=== PATIENT | female | born 1965 | race African-American/Black ===

== ENCOUNTER 2017-05-15 12:44 | Emergency (ER) | payer SELFPAY ==
[~2017-05-15] VITALS: Ht 157.5 cm; Wt 84.0 kg
[2017-05-15 12:48] VITALS: BP 133/78; PULSE 97; RESP 16; TEMP 98.4; O2SAT 99
[2017-05-15] MEDS ORDERED: IBUPROFEN 800 MG TAB PO ONE (13:15)
--- NOTE | 2017-05-15 14:07 | RADRPT ---
EXAM DATE/TIME: 05/15/2017 13:37 [facility] COMPARISON: No previous studies available for comparison. INDICATIONS : Patient complains of left ankle pain and swelling. No known injury. MEDICAL HISTORY : None. SURGICAL HISTORY : None. ENCOUNTER: Initial ACUITY: 2 weeks PAIN SCORE: 6/10 LOCATION: Left Ankle FINDINGS: Three view exam was performed of the left ankle. The bony structures are in normal alignment. No ev idence of fracture or dislocation. Minimal soft tissue prominence. The ankle mortise is intact. No radiopaque foreign bodies are seen. Bony mineralization is normal. CONCLUSION: Mild soft tissue prominence. No fracture. Andrea Romero MD on May 15, 2017 at 14:04 Board Certified Radiologist. This report was verified electronically.
[2017-05-15] MEDS ORDERED: MEDI220T PO (14:21)
--- NOTE | 2017-05-15 14:23 | PD ---
HPI . Left ankle pain Chief Complaint: Injury Time Seen by Provider: 13:05 Travel History International Travel<30 days: No Contact w/Intl Traveler<30days: No Traveled to known affect area: No History of Present Illness HPI 52-year-old female presents emergency for evaluation of left ankle pain. Patient denies any trauma, injury or fall. Patient states the pain started a couple weeks ago. Patient states the pain has been severe and causing difficulty ambulating. The patient states she went to [employer] yesterday and had a very difficult time walking around. The patient's only major medical history is hypertension. She denies any chest pain, shortness breath, fever, chills, malaise, lightheadedness, abdominal pain, nausea, vomiting, diarrhea. PFSH Past Medical History Diminished Hearing: No Hypertension: Yes (NON COMPLIANT) : 3 Para: 2 : 1 Tubal Ligation: Yes Past Surgical History Section: Yes Gynecologic Surgery: Yes (C SECT AND TUBAL LIGATION) Hysterectomy: Yes (HTN) Social History Alcohol Use: Yes (4 PACK BEER/DAY) Tobacco Use: Yes (1 1/2 PPD) Substance Use: Yes (CRACK YESTERDAY) Allergies-Medications (Allergen,Severity, Reaction): Coded Allergies: No Known Allergies (Verified Adverse Reaction, Unknown, 05/15/17) Reported Meds & Prescriptions Reported Meds & Active Scripts Active No Active Prescriptions or Reported Medications Review of Systems Except as stated in HPI: all other systems reviewed are Neg Physical Exam Narrative GENERAL: Well-nourished, well-developed 52-year-old female patient in no acute distress. Nontoxic appearing. SKIN: Focused skin assessment warm/dry. HEAD: Normocephalic. Atraumatic. EYES: No scleral icterus. No injection or drainage. NECK: Supple, trachea midline. No JVD or lymphadenopathy. CARDIOVASCULAR: Regular rate and rhythm without murmurs, gallops, or rubs. Pedal pulses +2 bilaterally. RESPIRATORY: Breath sounds equal bilaterally. No accessory muscle use. GASTROINTESTINAL: Abdomen soft, non-tender, nondistended. MUSCULOSKELETAL: Mildly edematous left ankle. No obvious deformity, cyanosis, ecchymosis, or erythema. BACK: Nontender without obvious deformity. No CVA tenderness. Data Data Last Documented VS Vital Signs Date Time Temp Pulse Resp B/P (MAP) Pulse Ox O2 Delivery O2 Flow Rate FiO2 05/15/17 12:48 98.4 97 16 133/78 (96) 99 Orders Orders Ankle, Complete ([id number]) (05/15/17 13:11) Ice/Cold Pack (05/15/17 13:11) Ibuprofen (Motrin) (05/15/17 13:15) Splint Or Brace Apply/Monitor (05/15/17 14:12) Ed Discharge Order (05/15/17 14:12) [facility] Medical Decision Making Medical Screen Exam Complete: Yes Emergency Medical Condition: Yes Differential Diagnosis Differential diagnoses include but not limited to ankle sprain, left ankle contusion, left ankle fracture, muscular strain, muscular sprain Narrative Course 52-year-old female patient presents emergency department for evaluation of left ankle pain 2 weeks. The left foot is neurovascularly intact. The left ankle is mildly edematous. There is no obvious deformity, ecchymosis, cyanosis or erythema. Left ankle x-ray ordered and pending. Ice applied to the left ankle. Ibuprofen ordered for pain and swelling. Left ankle x-ray shows soft tissue prominence with no fracture. Ryan wrap will be applied to left ankle and patient will be given crutches. Patient will be given a prescription for naproxen and discharged home with instructions to follow-up with her primary care or ortho for ankle sprain if pain persists. Patient will be given instructions on rice therapy. Last Impressions Ankle X-Ray 05/15/17 1311 Signed Impressions: Service Date/Time: Wednesday, May 15, 2017 13:37 - CONCLUSION: Mild soft tissue prominence. No fracture. Andrea Romero MD Diagnosis Primary Impression: Ankle sprain Qualified Codes: S93.402A - Sprain of unspecified ligament of left ankle, initial encounter Referrals: Fran Blake MD Primary Care Physician Patient Instructions: Ankle Sprain (ED), General Instructions Additional Instructions: Please return to emergency department if your symptoms return or worsen. Follow up with your primary care provider or Dr. Blake the orthopedist for further evaluation if pain persists. Take naproxen as directed as needed for pain. Rice therapy to left ankle, rest, ice, Ryan wrap with activity and elevate with resting. Med/Other Pt SpecificInfo: Prescription(s) given Scripts Naproxen Sodium (Naproxen Sodium) 220 Mg Tab 440 MG PO BID Y for Pain Management, #15 TAB 0 Refills Prov: Darcie Neal 05/15/17 Disposition: 01 DISCHARGE HOME Condition: Stable Darcie Neal May 15, 2017 14:23
== END 2017-05-15 14:33 | disposition home or self-care (01) ==
LOC: NEPK 12:44
DX: S93.402A Sprain of unspecified ligament of left ankle, initial encounter (principal); I10 Essential (primary) hypertension; F17.200 Nicotine dependence, unspecified, uncomplicated; X58.XXXA Exposure to other specified factors, initial encounter
CPT/HCPCS: 29515; 73610; 99283; E0113

== ENCOUNTER 2017-06-10 09:20 | Emergency (ER) | payer OTHER ==
[~2017-06-10] VITALS: Ht 157.5 cm; Wt 85.0 kg
[~2017-06-10 09:20] MED LIST: MEDI220T PO
[2017-06-10 09:22] VITALS: BP 168/102; PULSE 81; RESP 16; TEMP 98.2; O2SAT 98
[2017-06-10] MEDS ORDERED: AMLO10TA2 PO ×2 (09:40→10:06)
[2017-06-10] MEDS ORDERED: CLON0.3T PO ×2 (09:40→10:06)
--- NOTE | 2017-06-10 10:06 | PD ---
HPI Chief Complaint: Headache Time Seen by Provider: 09:49 Travel History International Travel<30 days: No Contact w/Intl Traveler<30days: No Traveled to known affect area: No History of Present Illness HPI 52-year-old female presents to emergency department complaining of a headache since last night. Related to her blood pressure being elevated and not taking her blood pressure medications 2 days because she ran out. Takes clonidine 0.3 mg twice a day and amlodipine 10 mg every a.m. She denies history of headaches. Headache is right frontal. Gradual onset. Reports nausea without vomiting. Denies fevers. Denies confusion, disorientation, change in mentation , slurred speech. Denies focal deficits or weakness. Denies chest pain, shortness of breath, abdominal pain. Has taken ibuprofen without relief of headache. Rates headache 04/13. Described as an ache. States that she was released from care home one month ago and was only given a one-month supply of blood pressure medication. Has appointment with [facility] on June 22 at 2:20 PM. No known allergies. History of hypertension and anemia. Has no other medical complaints. No other modifying factors or associated signs and symptoms. PFSH Past Medical History Cardiovascular Problems: Yes (HTN ) Diminished Hearing: No Hypertension: Yes Tetanus Vaccination: Unknown Influenza Vaccination: No ?: Not LMP: 4 YEARS AGO : 3 Para: 2 : 1 Tubal Ligation: Yes Past Surgical History Section: Yes Gynecologic Surgery: Yes (C SECT AND TUBAL LIGATION) Hysterectomy: Yes (HTN) Social History Alcohol Use: Yes (4 PACK BEER a few times per week) Tobacco Use: Yes (1 1/2 PPD) Substance Use: No (denied) Allergies-Medications (Allergen,Severity, Reaction): Coded Allergies: No Known Allergies (Verified Adverse Reaction, Unknown, 06/10/17) Reported Meds & Prescriptions Reported Meds & Active Scripts Active Amlodipine (Amlodipine Besylate) 10 Mg Tab 10 Mg PO DAILY Clonidine (Clonidine HCl) 0.3 Mg Tab 0.3 Mg PO BID Reported Amlodipine (Amlodipine Besylate) 10 Mg Tab 10 Mg PO DAILY Clonidine (Clonidine HCl) 0.3 Mg Tab 0.3 Mg PO BID Review of Systems Except as stated in HPI: all other systems reviewed are Neg Physical Exam Narrative GENERAL: Well-nourished, well-developed black female patient, in no acute distress SKIN: Warm and dry. HEAD: Atraumatic. Normocephalic. No facial droop noted. Tongue midline. Finger to nose test normal. EYES: Pupils equal and round at 3 mm with brisk reaction. No scleral icterus. No injection or drainage. PERRLA. EOMI. ENT: Mucosa pink and moist. Airway patent. NECK: Trachea midline. No lymphadenopathy. CARDIOVASCULAR: Regular rate and rhythm. No murmur appreciated. RESPIRATORY: No accessory muscle use. Clear to auscultation. Breath sounds equal bilaterally. GASTROINTESTINAL: Abdomen soft, non-tender, nondistended. Hepatic and splenic margins not palpable. Bowel sounds are active 4 quadrants. MUSCULOSKELETAL: No obvious deformities. No clubbing. No cyanosis. No edema. NEUROLOGICAL: Awake and alert. Oriented 4. No obvious cranial nerve deficits. Motor grossly within normal limits. Normal speech. No ataxia. No upper or lower extremity drift. No mid-line drift. Moves all extremities. 5/ 5 strength to all extremities. PSYCHIATRIC: Appropriate mood and affect; insight and judgment normal. Data Data Last Documented VS Vital Signs Date Time Temp Pulse Resp B/P (MAP) Pulse Ox O2 Delivery O2 Flow Rate FiO2 06/10/17 10:44 90 14 150/89 (109) 95 Room Air 06/10/17 09:[address] Brain W/O Iv Contrast(Rout) (06/10/17 ) Clonidine (Catapres) (06/10/17 10:15) Amlodipine (Norvasc) (06/10/17 10:15) MDM Medical Decision Making Medical Screen Exam Complete: Yes Emergency Medical Condition: Yes Medical Record Reviewed: Yes Differential Diagnosis High blood pressure, acute headache, medication refill Narrative Course 52-year-old female presents with headache and elevated blood pressure. She has not taken her blood pressure medication 2 days. Takes clonidine and amlodipine. Neuro exam is unremarkable. Denies chest pain, shortness of breath. Does not have history of headaches. Amlodipine and clonidine ordered per patients prescribed regimen. CT head ordered. 1106: CT head concludes: No acute intracranial abnormality is identified. Blood pressure recheck 150/89. Patient reports improvement in headache on reevaluation. Rates headache 6/10. Ibuprofen administered prior to discharge. Clonidine and amlodipine prescriptions provided for home. Instructed patient to follow up at scheduled appointment with [facility] on June 22. Instructed patient to follow up with primary care provider. Patient verbalizes understanding and agreement with treatment plan. Patient is medically cleared and stable for discharge. Discussed reasons to return to the emergency department. Patient agrees with treatment plan. The patients vital signs are stable and the patient is stable for outpatient follow-up and treatment. Patient discharged home, stable and in no acute distress. Diagnosis Primary Impression: Headache Qualified Codes: R51 - Headache Additional Impression: High blood pressure Qualified Codes: I10 - Essential (primary) hypertension Referrals: [facility] Primary Care Physician Patient Instructions: Acute Headache (ED), General Instructions, Hypertension ( ED) Additional Instructions: Take blood pressure medications as prescribed Ibuprofen or Tylenol as directed and as needed for pain Follow-up with your primary care provider Return to the emergency department immediately with worsening of symptoms Med/Other Pt SpecificInfo: Prescription(s) given Scripts Amlodipine (Amlodipine) 10 Mg Tab 10 MG PO DAILY for Blood Pressure Management, #30 TAB 0 Refills Prov: Juanita Harry 06/10/17 Clonidine (Clonidine) 0.3 Mg Tab 0.3 MG PO BID for Blood Pressure Management, #60 TAB 0 Refills Prov: Juanita Harry 06/10/17 Disposition: 01 DISCHARGE HOME Condition: Stable Juanita Harry Jun 10, 2017 10:06
[2017-06-10] MEDS ORDERED: cloNIDine HCL 0.1 MG TAB PO ONE (10:15)
[2017-06-10 10:44] VITALS: BP 150/89; PULSE 90; RESP 14; O2SAT 95
--- NOTE | 2017-06-10 11:03 | RADRPT ---
EXAM DATE/TIME: 06/10/2017 10:24 [facility] COMPARISON: CT BRAIN W/O CONTRAST, December 20, 2009, 1:13. INDICATIONS : Hypertension with cephalgia for 2 days. RADIATION DOSE: 56.35 CTDIvol (mGy) MEDICAL HISTORY : Hypertension. SURGICAL HISTORY : Tubal ligation. ENCOUNTER: Initial ACUITY: 2 days PAIN SCALE: 7/10 LOCATION: Bilateral cranial TECHNIQUE: Multiple contiguous axial images were obtained of the head. Using automated exposure control and adj ustment of the mA and/or kV according to patient size, radiation dose was kept as low as reasonably a chievable to obtain optimal diagnostic quality images. DICOM format image data is available electro nically for review and comparison. FINDINGS: CEREBRUM: The ventricles are normal. No evidence of midline shift, mass lesion, hemorrhage or acute infarction . No extra-axial fluid collections are seen. POSTERIOR FOSSA: The cerebellum and brainstem demonstrate no acute finding. The 4th ventricle is midline. The cerebe llopontine angle is unremarkable. EXTRACRANIAL: Visualized sinuses are clear. SKULL: The calvaria is intact. No evidence of skull fracture. CONCLUSION: No acute intracranial abnormality is identified. Eliseo Ramirez MD on June 10, 2017 at 11:00 Board Certified Radiologist. This report was verified electronically.
[2017-06-10] MEDS ORDERED: IBUPROFEN 800 MG TAB PO ONE (11:15)
[2017-06-10 11:53] VITALS: BP 135/79; PULSE 88; RESP 14; O2SAT 97
== END 2017-06-10 11:54 | disposition home or self-care (01) ==
LOC: NEPD 09:20
DX: R51 Headache (principal); I10 Essential (primary) hypertension; R11.0 Nausea; F17.200 Nicotine dependence, unspecified, uncomplicated; Z86.2 Personal history of diseases of the blood and blood-forming organs and certain disorders involving the immune mechanism; Z72.89 Other problems related to lifestyle
CPT/HCPCS: 70450; 99285

== ENCOUNTER 2017-07-08 10:03 | Emergency (ER) | payer OTHER ==
[~2017-07-08 10:03] MED LIST changes: +AMLO10TA2 PO; +CLON0.3T PO; -MEDI220T PO
[2017-07-08 10:05] VITALS: BP 132/96; PULSE 78; RESP 20; TEMP 98.7; O2SAT 96
--- NOTE | 2017-07-08 10:23 | PD ---
HPI Chief Complaint: Medication Refill Request Time Seen by Provider: 10:11 Travel History International Travel<30 days: No Contact w/Intl Traveler<30days: No Traveled to known affect area: No History of Present Illness HPI 52-year-old female presents to the emergency room requesting medication refill of clonidine. States she last took her medication 2 days ago. States when she doesn't have it she begins getting dizzy and lightheaded. She does not have a primary care physician. She had her last prescription refilled at this facility. She states prior to that she was in nursing home and given her medications in nursing home. She has been on clonidine for 3 years. She is supposed to take amlodipine also but cannot afford it. [facility] Past Medical History Cardiovascular Problems: Yes (HTN ) Diminished Hearing: No Hypertension: Yes : 3 Para: 2 : 1 Tubal Ligation: Yes Past Surgical History Section: Yes Gynecologic Surgery: Yes (C SECT AND TUBAL LIGATION) Hysterectomy: Yes (HTN) Social History Alcohol Use: Yes (4 PACK BEER a few times per week) Tobacco Use: Yes (07/06 PPD) Substance Use: No (denied) Allergies-Medications (Allergen,Severity, Reaction): Coded Allergies: No Known Allergies (Verified Adverse Reaction, Unknown, 07/08/17) Reported Meds & Prescriptions Reported Meds & Active Scripts Active Amlodipine (Amlodipine Besylate) 10 Mg Tab 10 Mg PO DAILY Clonidine (Clonidine HCl) 0.3 Mg Tab 0.3 Mg PO BID Reported Amlodipine (Amlodipine Besylate) 10 Mg Tab 10 Mg PO DAILY Clonidine (Clonidine HCl) 0.3 Mg Tab 0.3 Mg PO BID Review of Systems Except as stated in HPI: all other systems reviewed are Neg Physical Exam Narrative GENERAL: Well-nourished, well-developed female in no acute distress. Afebrile. Ambulatory. SKIN: Focused skin assessment warm/dry. HEAD: Normocephalic. EYES: No scleral icterus. No injection or drainage. NECK: Supple, trachea midline. No JVD or lymphadenopathy. CARDIOVASCULAR: Regular rate and rhythm without murmurs, gallops, or rubs. RESPIRATORY: Breath sounds equal bilaterally. No accessory muscle use. NEUROLOGICAL: Awake and alert. Cranial nerves II through XII intact. Motor and sensory grossly within normal limits. Five out of 5 muscle strength in all muscle groups. Normal speech. Data Data Last Documented VS Vital Signs Date Time Temp Pulse Resp B/P (MAP) Pulse Ox O2 Delivery O2 Flow Rate FiO2 07/08/17 10:05 98.7 78 20 132/96 (108) 96 Room Air MDM Medical Decision Making Medical Screen Exam Complete: Yes Emergency Medical Condition: Yes Medical Record Reviewed: Yes Differential Diagnosis Headache, medication refill, hypertension Narrative Course 52-year-old female presents to the emergency room requesting medication refill of clonidine. She ran out 2 days ago. She does not the PCP. Patient was educated on the importance of having a primary care physician and given information for [facility]. She was informed that the emergency room is not a place to have her medications filled every month. She'll be given a two-week dose at this point and told to follow-up with her primary care physician for continuation. Told to return for urgent or emergent medical conditions. She understands and agrees to plan. Diagnosis Primary Impression: Medication refill Referrals: Primary Care Physician Additional Instructions: Take medications as directed. Follow-up with [facility] for refill. Return to the emergency room for worsening symptoms. Med/Other Pt SpecificInfo: Prescription(s) given Disposition: 01 DISCHARGE HOME Condition: Stable Laurel Vigil Jul 08, 2017 10:23
[2017-07-08] MEDS ORDERED: CLON0.3T PO (10:24)
== END 2017-07-08 10:36 | disposition home or self-care (01) ==
LOC: NEPK 10:03
DX: Z76.0 Encounter for issue of repeat prescription (principal); I10 Essential (primary) hypertension; F17.200 Nicotine dependence, unspecified, uncomplicated; Z79.899 Other long term (current) drug therapy
CPT/HCPCS: 99281

== ENCOUNTER 2017-08-16 09:15 | Emergency (ER) | payer OTHER ==
[~2017-08-16] VITALS: Ht 157.5 cm; Wt 80.0 kg
[2017-08-16 09:18] VITALS: BP 98/75; PULSE 81; RESP 14; TEMP 97.6; O2SAT 97
[2017-08-16 09:39] VITALS: BP 107/78; PULSE 76
--- NOTE | 2017-08-16 09:50 | PD ---
HPI Chief Complaint: Medication Refill Request Time Seen by Provider: 09:41 Travel History International Travel<30 days: No Contact w/Intl Traveler<30days: No Traveled to known affect area: No History of Present Illness HPI This is a 52-year-old female who presents requesting refill of her blood pressure medication. She reports a history of hypertension for which she has been on clonidine 0.3 mg BID. She reports that she ran out 3 days ago and thus is requesting a refill. She does not have a primary care physician and therefore typically goes to the emergency room on a monthly basis in order to receive refills. She has no other complaints at this time. [facility] Past Medical History Cardiovascular Problems: Yes (HTN) Diminished Hearing: No Hypertension: Yes : 3 Para: 2 : 1 Tubal Ligation: Yes Past Surgical History Section: Yes Gynecologic Surgery: Yes (C SECT AND TUBAL LIGATION) Hysterectomy: Yes (HTN) Social History Alcohol Use: Yes (4 PACK BEER a few times per week) Tobacco Use: Yes (1 07/06 PPD) Substance Use: No (denied) Allergies-Medications (Allergen,Severity, Reaction): Coded Allergies: No Known Allergies (Verified Adverse Reaction, Unknown, 08/16/17) Reported Meds & Prescriptions Reported Meds & Active Scripts Active Amlodipine (Amlodipine Besylate) 10 Mg Tab 10 Mg PO DAILY Reported Clonidine (Clonidine HCl) 0.3 Mg Tab 0.3 Mg PO BID Review of Systems ROS Limitations: Other: (the patient walked out long-term through history taking) General / Constitutional: No: Fever, Chills Eyes: No: Blurred Vision Cardiovascular: No: Chest Pain or Discomfort Respiratory: No: Shortness of Breath Neurologic: No: Weakness, Dizziness Physical Exam Narrative GENERAL: Well-nourished female in no acute distress The patient refused the remainder of the examination and left prior to it. Data Data Last Documented VS Vital Signs Date Time Temp Pulse Resp B/P (MAP) Pulse Ox O2 Delivery O2 Flow Rate FiO2 08/16/17 09:39 76 107/78 (88) 08/16/17 09:18 97.6 14 97 MDM Medical Decision Making Medical Screen Exam Complete: Yes Emergency Medical Condition: Yes Medical Record Reviewed: Yes Differential Diagnosis Medication refill, hypertension, hypertensive urgency Narrative Course 52-year-old female presents requesting a refill of her clonidine 0.3 mg BID which she ran out of 3 days ago. Per chart review the patient was here in July requesting the same thing as well as in June. Unfortunately does not have a primary care physician. Her blood pressure in triage was 98/75. Upon recheck it is 107/78. I'm certainly hesitant to prescribe this patient a high dose of clonidine when her blood pressure is already borderline hypotensive. The patient reports that she does not check her blood pressure. As I was discussing with the patient the recommendation of checking her blood pressure on a daily basis and keeping a journal in order to document her actual blood pressure medication needs she became angry and upset because I would not give her a refill today and stormed out of the room. Diagnosis Primary Impression: Blood pressure check Med/Other Pt SpecificInfo: No Change to Meds Disposition: 01 DISCHARGE HOME Condition: Stable Derick Friedman Aug 16, 2017 09:50
== END 2017-08-16 12:42 | disposition home or self-care (01) ==
LOC: NEPK 09:15
DX: Z01.30 Encounter for examination of blood pressure without abnormal findings (principal); I10 Essential (primary) hypertension; F17.210 Nicotine dependence, cigarettes, uncomplicated; Z79.899 Other long term (current) drug therapy
CPT/HCPCS: 99281

== ENCOUNTER 2017-10-07 10:41 | Emergency (ER) | payer OTHER ==
[2017-10-07 11:00] VITALS: BP 119/76; PULSE 80; RESP 16; TEMP 98.4; O2SAT 99
[2017-10-07 11:38] LABS: AUTOMATED NEUTROPHIL # 2.9 TH/MM3 (1.8-7.7); BASOPHIL % 0.5 % (0.0-2.0); EOSINOPHIL # 0.2 TH/MM3 (0-0.4); HEMATOCRIT 41.9 % (35.0-46.0); HEMOGLOBIN 13.5 GM/DL (11.6-15.3); LYMPH % 33.1 % (9.0-44.0); LYMPHOCYTE # 1.7 TH/MM3 (1.0-4.8); MEAN CELL VOLUME 73.8 FL (80.0-100.0); MEAN CORPUSCULAR HEMOGLOBIN 23.8 PG (27.0-34.0); MEAN CORPUSCULAR HGB CONC 32.2 % (32.0-36.0); MEAN PLATELET VOLUME 9.2 FL (7.0-11.0); MONO % 8.4 % (0.0-8.0); MONOCYTE # 0.4 TH/MM3 (0-0.9); PLATELET COUNT 201 TH/MM3 (150-450); RED BLOOD COUNT 5.68 MIL/MM3 (4.00-5.30); RED CELL DISTRIBUTION WIDTH 15.2 % (11.6-17.2); WHITE BLOOD COUNT 5.3 TH/MM3 (4.0-11.0)
[2017-10-07 12:20] LABS: BICARBONATE 25.4 MEQ/L (21.0-32.0); CALCIUM 8.8 MG/DL (8.5-10.1); CREATININE 1.21 MG/DL (0.50-1.00)
--- NOTE | 2017-10-07 16:38 | PD ---
HPI Chief Complaint: Bleeding Time Seen by Provider: 14:29 Travel History International Travel<30 days: No Contact w/Intl Traveler<30days: No Traveled to known affect area: No History of Present Illness HPI The patient was seen and examined in the presence of the nurse. This patient complains of vaginal bleeding. She has been postmenopausal for about 5 years. A few days ago she started having bleeding about the strength of the menstrual cycle. She is not having pelvic pain. No presyncopal symptoms. Denies discharge other than some blood. No alleviating factors. No exacerbating factors. Duration is 3 days. Symptom severity is moderate PFSH Past Medical History Cardiovascular Problems: Yes (HTN) Diminished Hearing: No Hypertension: Yes ?: Not : 3 Para: 2 : 1 Tubal Ligation: Yes Past Surgical History Section: Yes Gynecologic Surgery: Yes (C SECT AND TUBAL LIGATION) Hysterectomy: Yes (HTN) Social History Alcohol Use: Yes (4 [employer] a few times per week) Tobacco Use: Yes (1 07/06 PPD) Substance Use: No (denied) Allergies-Medications (Allergen,Severity, Reaction): Coded Allergies: No Known Allergies (Verified Adverse Reaction, Unknown, 08/16/17) Reported Meds & Prescriptions Reported Meds & Active Scripts Active Amlodipine (Amlodipine Besylate) 10 Mg Tab 10 Mg PO DAILY Reported Clonidine (Clonidine HCl) 0.3 Mg Tab 0.3 Mg PO BID Review of Systems General / Constitutional: No: Fever Eyes: No: Visual changes HENT: No: Headaches Cardiovascular: No: Chest Pain or Discomfort Respiratory: No: Shortness of Breath Gastrointestinal: No: Abdominal Pain Genitourinary: Positive: Vaginal Bleeding, No: Dysuria Musculoskeletal: No: Pain Skin: No Rash Neurologic: No: Weakness Psychiatric: No: Depression Endocrine: No: Polydipsia Hematologic/Lymphatic: No: Easy Bruising Physical Exam Narrative GENERAL: Well-nourished, well-developed patient in no apparent distress. SKIN: Focused skin assessment reveals no rash and nodules. Skin is Warm and dry. HEAD: Atraumatic. Normocephalic. EYES: Pupils equal and round. No scleral icterus. No injection or drainage. ENT: No nasal bleeding or discharge. Mucous membranes pink and moist. NECK: Trachea midline. No JVD. CARDIOVASCULAR: Regular rate and rhythm. No murmur appreciated. RESPIRATORY: No accessory muscle use. Clear to auscultation. Breath sounds equal bilaterally. GASTROINTESTINAL: Abdomen soft, non-tender, nondistended. Hepatic and splenic margins not palpable. MUSCULOSKELETAL: No obvious deformities. No clubbing. No cyanosis. No edema. NEUROLOGICAL: Awake and alert. No obvious cranial nerve deficits. Motor grossly within normal limits. Normal speech. PSYCHIATRIC: Appropriate mood and affect; insight and judgment normal. Data Data Last Documented VS Vital Signs Date Time Temp Pulse Resp B/P (MAP) Pulse Ox O2 Delivery O2 Flow Rate FiO2 10/07/17 14:43 Room Air 10/07/17 11:00 98.4 80 16 119/76 (90) 99 Orders Orders Complete Blood Count With Diff (10/07/17 11:01) Basic Metabolic Panel (Bmp) (10/07/17 11:01) Labs Laboratory Tests Test 10/07/17 11:06 White Blood Count 5.3 TH/MM3 Red Blood Count 5.68 MIL/MM3 Hemoglobin 13.5 GM/DL Hematocrit 41.9 % Mean Corpuscular Volume 73.8 FL Mean Corpuscular Hemoglobin 23.8 PG Mean Corpuscular Hemoglobin Concent 32.2 % Red Cell Distribution Width 15.2 % Platelet Count 201 TH/MM3 Mean Platelet Volume 9.2 FL Neutrophils (%) (Auto) 54.0 % Lymphocytes (%) (Auto) 33.1 % Monocytes (%) (Auto) 8.4 % Eosinophils (%) (Auto) 4.0 % Basophils (%) (Auto) 0.5 % Neutrophils # (Auto) 2.9 TH/MM3 Lymphocytes # (Auto) 1.7 TH/MM3 Monocytes # (Auto) 0.4 TH/MM3 Eosinophils # (Auto) 0.2 TH/MM3 Basophils # (Auto) 0.0 TH/MM3 CBC Comment DIFF FINAL Differential Comment Blood Urea Nitrogen 15 MG/DL Creatinine 1.21 MG/DL Random Glucose 101 MG/DL Calcium Level 8.8 MG/DL Sodium Level 138 MEQ/L Potassium Level 4.5 MEQ/L Chloride Level 106 MEQ/L Carbon Dioxide Level 25.4 MEQ/L Anion Gap 7 MEQ/L Estimat Glomerular Filtration Rate 56 ML/MIN MDM Medical Decision Making Medical Screen Exam Complete: Yes Emergency Medical Condition: Yes Medical Record Reviewed: Yes Differential Diagnosis Endometrial hyperplasia, fibroid, polyp Narrative Course I have reviewed the patient's electronic medical record. IV placed and labs sent These are reviewed CBC shows hemoglobin of 13.6 Metabolic studies are normal Patient needs to do outpatient gynecology follow-up. I discussed the importance of this. I discussed that endometrial cancer is in the differential diagnosis. Diagnosis Primary Impression: Postmenopausal vaginal bleeding Additional Instructions: Follow-up with [facility] Med/Other Pt SpecificInfo: Other Disposition: 01 DISCHARGE HOME Condition: Stable Emmanuel Ho MD Oct 07, 2017 16:38
== END 2017-10-07 16:41 | disposition home or self-care (01) ==
LOC: NEPD 10:41
DX: N95.0 Postmenopausal bleeding (principal); I10 Essential (primary) hypertension; F17.200 Nicotine dependence, unspecified, uncomplicated
CPT/HCPCS: 80048; 85025; 99283